=== PATIENT | male | born 1980 | race Caucasian/White ===

== ENCOUNTER 2022-02-02 08:20 | Day surgery (SDC) | payer OTHER, SELFPAY ==
[2022-01-30 14:02] VITALS: BMI 26.4
[2022-02-02 08:31] LABS: Coronavirus 19, PCR Not Detected (NotDetected); Influenza A, PCR Not Detected (NotDetected); Influenza B, PCR Not Detected (NotDetected)
[2022-02-02 08:49] VITALS: BP 134/78; PULSE 84; RESP 18; TEMP 36.7; O2SAT 98
--- NOTE | 2022-02-02 09:21 | HMH.ANESCL ---
[facility] Anesthesia Checklist - Patient Identification Patient Identification: Arm Band, Verbal (Name & ) - Structural Data Admitted From: Home Planned Operative Procedure/s: Vasectomy Consent for Planned Operative Procedure(s) Verified: Yes Verified Documents: Surgical Consent - NPO Status Verified Time NPO: 00:00 - Additional verifications Anesthesia Reactions: No Hx Blood Transfusions: No Blood Transfusion Reaction: No - Airway Assessment C-Spine Mobility Assessed: Yes TMJ Mobility Assessed: Yes Dentition: Good Dentition - Neurological Assessment Level of Consciousness: Awake, Alert, Appropriate - Anesthesia Plan ASA Class: I Anesthesia Type: [facility] History Medical History: Denies:: Cancer, Diabetes Mellitus Type 1, Diabetes Mellitus Type 2, Internal Pacemaker, MRSA, Seizures *Have you ever received a pneumonia vaccine?: No *Have you received a flu vaccine this season?: No Other Medical History: Denies: Blood Transfusion Reaction Anesthesia experience/problems:: none Other Surgeries: Yes: No Previous Surgery, Hernia Repair. No: Pacemaker Amputation: No Fractures: No - *Social History Last grade of school completed: High school graduate Smoking Status: Never smoker Alcohol Intake: never Substance Use Type: denies use *Occupational Status:: employed Housing: house Household Members: spouse, family *Travel in the last 8 weeks: None Family Hx:: No significant family history
[2022-02-02 10:12] VITALS: BP 129/79; PULSE 97; RESP 18; TEMP 36.6; O2SAT 97
[2022-02-02 10:27] VITALS: BP 162/98; PULSE 80; RESP 18; TEMP 36.6; O2SAT 97
--- NOTE | 2022-02-02 10:37 | HMH.OPNOTE ---
Date of procedure: 02/02/22 Pre-op Diagnosis:: Sterilization Post-op Diagnosis:: Sterilization Procedure performed:: Vasectomy Surgeon:: Jonathan Roman MD MEDICAL OFFICE SECRETARY:: Robert Gomez Anesthesia: MAC Estimated blood loss (mL): 1 Clinical Note:: 41-year-old white male presents for vasectomy. Patient has had a prior vasectomy followed by a vasectomy reversal now presents for vasectomy again. Operative findings:: Scrotal examination reveals testicles are within normal limits and no evidence of masses. There was some evidence of scarring along the vas bilaterally. Patient tolerated well under sedation. Operative note:: Patient taken to the operating room after informed consent was obtained. He was placed on the operating table in the supine position and monitored anesthesia care administered. He was prepped draped in the standard surgical fashion. Scrotal examination revealed normal sized testicles without masses. Vasa are palpable bilaterally. Left vas was grasped between 2 fingers and brought cephalad to the midline raphae. Local anesthetic was placed under the skin and around the left vas and an incision was then made in the midline raphae and a tenaculum was used to grasp the vas and it was brought up through the incision. The vasal sheath was incised and the vas proper was then isolated from its surrounding tissue. 1 Hemoclip was placed distally and 2 were placed proximally. A 1 cm segment of the vas was removed and the ends of the vas were cauterized. The left vas was dropped back into the left hemiscrotum and hemostasis achieved at the tissues. The identical procedure was performed on the patient's right side. There was a little more scarring at the surgical site on the right side. The right vas was dropped back into the right hemiscrotum no bleeding was encountered. Two 3-0 chromic were placed into the skin incision compression dressing applied. Patient tolerated procedure well no complications. Condition: stable Disposition: same day Specimens:: Vas segments were not sent to path Complications:: None
[2022-02-02 10:42] VITALS: BP 152/94; PULSE 79; RESP 18; TEMP 36.9; O2SAT 96
[2022-02-02 11:10] VITALS: BP 131/94; PULSE 73; RESP 18; TEMP 36.9; O2SAT 97
== END 2022-02-02 11:10 | disposition home or self-care (01) ==
LOC: OR 08:22
PROVIDERS: PCP Family Medicine; Visit Provider Urology
PROC: (CPT 55250; principal; 2022-02-02 10:30)
DX: Z30.2 Encounter for sterilization (principal)
CPT/HCPCS: 55250; C9803; J2405; U0003; U0005